=== PATIENT | female | born 1985 | race Native Hawaiian/Other Pacific Islander ===

== ENCOUNTER 2017-12-20 11:08 | Outpatient (CLI) | payer OTHER | END 2017-12-20 19:07 | disposition home or self-care (01) | LOC: RESP 11:08 | DX: I10 Essential (primary) hypertension (principal) ==

== ENCOUNTER 2018-07-20 10:22 | Outpatient (CLI) | payer OTHER | END 2018-07-20 22:23 | disposition home or self-care (01) | LOC: RAD 10:22 | DX: R10.9 Unspecified abdominal pain (principal) | CPT/HCPCS: 74022 ==